=== PATIENT | male | born 1940 | race Caucasian/White ===

== ENCOUNTER 2023-12-01 18:51 | Inpatient (IN) | payer OTHER ==
[~2023-12-01] VITALS: Ht 172.7 cm; Wt 73.7 kg
[2023-12-01] MEDS ORDERED: NS 1,000 ML IV SCH (19:15)
[2023-12-01] MEDS ORDERED: HYDROmorphone 0.5 MG/0.5 ML SYRINGE IV PRN (19:15)
[2023-12-01] MEDS ORDERED: Ondansetron 4 MG/2 ML VIAL IV PRN (19:15)
--- NOTE | 2023-12-01 20:00 | NUR ---
PATIENT AND ORIENTED TO ROOM 315. PATIENT IS ALERT AND ORIENTED BUT QUITE HARD OF HEARING AND USES HEARING AIDS BILATERALLY. STATES WHEN HE IS AT REST AND NOT MOVING, HIS ABDOMINAL PAIN IS NOT PRESENT, HOWEVER WHEN HE MOVES OR BENDS FORWARD IT INCREASES SIGNIFICANTLY. AT BASELINE HE USES 5L O2 VIA NASAL CANNULA. WAS ABLE TO AMBULATE FROM WHEELCHAIR TO BED WITHOUT ASSISTANCE OR ANY ASSISTIVE DEVICES. EDUCATED DOCKET CLERK LIGHT USE AND ENSURED CALL LIGHT IS WITHIN REACH. BED IS LOCKED AND IN LOW POSITION. EDUCATED PATIENT ON NPO STATUS, TO WHICH HE EXPRESSED UNDERSTANDING. PATIENT AND HAD SEVERAL QUESTIONS TO WHEN SURGERY WOULD BE IN THE MORNING, THIS RN ADVISED THAT I WOULD CHECK WITH STITCH CLEANER AND SEE IF HE HAS BEEN PLACED ON THE SURGERY SCHEDULE YET. IS REQUESTING TO REMAIN AT BEDSIDE SHE HAS AN HOUR DRIVE BACK TO THEIR HOME AND WOULD HAVE ANOTHER HOUR DRIVE BACK TO OUR FACILITY FIRST THING IN THE MORNING, ASSOCIATE AUTOMATION ENGINEER DID APPROVE OF THIS REQUEST AND AGREES TO VISITOR POLICY.
[2023-12-01 20:01] VITALS: BP 158/79; PULSE 88; TEMP 98.3
[2023-12-01] MEDS ORDERED: PRILOSEC 20MG20 MG PO (20:08)
[2023-12-01] MEDS ORDERED: ZOCOR 40MG40 MG PO (20:09)
[2023-12-01] MEDS ORDERED: CLARITIN 1010 MG/TAB PO (20:10)
[2023-12-01] MEDS ORDERED: DULERA1 AR1 IH (20:11)
[2023-12-01] MEDS ORDERED: PRINZIDE 12.5 M1 TAB PO (20:11)
[2023-12-01] MEDS ORDERED: OPTIVE SENSITI0.4 ML OU (20:12)
[2023-12-01] MEDS ORDERED: PROAIR HFA0.09 MG/AC IH (20:12)
[2023-12-01 21:32] LABS: COLLECTION METHOD CLEAN CATCH
[2023-12-01 21:41] VITALS: BP_SYST 158
[2023-12-01 21:46] LABS: URINE APPEARANCE CLEAR (CLEAR/HAZY); URINE BLOOD NEGATIVE (NEGATIVE); URINE COLOR YELLOW (YELLOW); URINE GLUCOSE NEGATIVE (NEGATIVE); URINE KETONE NEGATIVE (NEGATIVE); URINE NITRATE NEGATIVE (NEGATIVE); URINE PROTEIN(semi-quant) 2+ (NEGATIVE)
[2023-12-01 21:54] LABS: CALCIUM 10.2 mg/dL (8.4-10.2); CREATININE, serum 1.3 mg/dL (0.72-1.25); POTASSIUM 3.3 mEq/L (3.5-4.5)
[2023-12-01] MEDS ORDERED: Mometasone/Formoterol 200/5 MCG MDI IH SCH (22:28)
[2023-12-01] MEDS ORDERED: CENTRUM SILVER1 TAB PO (22:30)
[2023-12-01] MEDS ORDERED: VITAMIN E1000 U/CAP PO (22:30)
[2023-12-01] MEDS ORDERED: Albuterol 0.083% Neb Soln 2.5 MG/3 ML UD IH PRN (22:30)
[2023-12-01] MEDS ORDERED: ASPIRIN 81M81 MG/TA2 PO (22:36)
[2023-12-01] MEDS ORDERED: *Potassium Replacement Protocol MC SCH (22:45)
[2023-12-01] MEDS ORDERED: Potassium Chloride 100 ML IV SCH (22:45)
[2023-12-01 23:29] VITALS: BP 154/92; PULSE 87; TEMP 97.3
--- NOTE | 2023-12-01 23:30 | NUR ---
PATIENT CALLED STATING HIS IV WAS BURNING. EDUCATED PATIENT THAT THIS IS A COMMON SIDE EFFECT OF HIS IV POTASSIUM. DECREASED RATE OF KCL TO 75 ML/HR AND PATIENT IS CURRENTLY TOLERATING THE FLUID MUCH BETTER.
[2023-12-02] VITALS (14 sets, daily range): BP systolic 144–164; BP diastolic 66–88; PULSE 73–98; TEMP 97.5–98.2
[2023-12-02 06:42] LABS: BASO % 0.2 % (0.0-2.0); EOS # 0.2 K/mm3 (0.0-0.7); EOS % 1.9 % (0.0-4.0); GRAN # 7.5 K/mm3 (1.4-6.5); GRAN % 81.1 % (42.2-75.2); HEMOGLOBIN 11.5 g/dl (13.5-18.0); LYMPH # 0.7 K/mm3 (1.2-3.4); LYMPH % 7.5 % (20.0-51.0); MEAN CELL VOLUME 98 fl (80.0-100.0); MEAN CORPUSCULAR HEMOGLOBIN 32 pg (27-31); MEAN CORPUSCULAR HGB CONC 33 g/dl (33.0-37.0); MEAN PLATELET VOLUME 9.9 fl (7.4-10.4); MONO # 0.8 K/mm3 (0.1-0.6); MONO % 8.3 % (1.7-9.3); PLATELET COUNT 182 K/mm3 (130-400); REDCELL DISTRIBUTION WIDTH-CV 13.2 % (11.5-14.5)
[2023-12-02 06:46] LABS: HEMATOCRIT 35.4 % (42.0-52.0)
[2023-12-02] MEDS ORDERED: Formoterol Neb Soln 20 MCG/2 ML UD IH SCH (07:00)
[2023-12-02] MEDS ORDERED: Budesonide Neb Susp 0.5 MG/2 ML AMP IH SCH (07:00)
[2023-12-02 07:14] LABS: ALBUMIN 2.5 g/dL (3.4-4.8); BILIRUBIN,TOTAL 1.3 mg/dL (0.2-1.2); CALCIUM 10.1 mg/dL (8.4-10.2); CREATININE, serum 1.16 mg/dL (0.72-1.25); TOTAL PROTEIN 5.9 g/dl (6.2-8.1)
[2023-12-02] MEDS ORDERED: Loratadine 10 MG TAB PO SCH (09:00)
[2023-12-02] MEDS ORDERED: HYDROCHLOROTHIAZIDE 12.5 MG PO SCH (09:00)
[2023-12-02] MEDS ORDERED: Carboxymethylcellulose PF Ophth 0.4 ML DROPPERETTE OP SCH (09:00)
[2023-12-02] MEDS ORDERED: OPTIVE EYE OP SCH (09:00)
[2023-12-02] MEDS ORDERED: Pantoprazole 40 MG in NS 10 ML IV SCH (09:00)
[2023-12-02] MEDS ORDERED: LISINOPRIL 10 MG PO SCH (09:00)
[2023-12-02] MEDS ORDERED: Dextrose 50% Water 25 GM/50 ML SYRINGE IV ONE ×2 (09:15→13:45)
--- NOTE | 2023-12-02 09:34 | NUR ---
Patient resting in bed, alert and oriented x 4, some hypertension. BG low, reported to Dr. Walden. 12.5 g IV dextrose provided. Pt denies any pain at this time. NPO from midnight. Aware of ERCP procedure. Consent signed. Getting IV fluids. Assessment completed, meds given. No further needs at this time. Call light within reach.
[2023-12-02] MEDS ORDERED: LR 1,000 ML IV SCH (13:00)
--- NOTE | 2023-12-02 13:55 | NUR ---
Call placed to Dr. Walden to report patient's BG is 75. Since NPO for intervention, ordered placed for 25g DEXTROSE, given. Pt to be taken for procedure. LR started.
[2023-12-02] MEDS ORDERED: Iohexol 350 - 100 ML VIAL BILE DUCT ONE (15:03)
[2023-12-02] MEDS ORDERED: Lidocaine PF 2% (20 MG/ML) 5 ML VIAL ONE (15:09)
--- NOTE | 2023-12-02 15:34 | NUR ---
Patient is back to his room, alert and oriented x 4, 2L O2 SAT 97%. 143/79. Post op started.
--- NOTE | 2023-12-02 16:12 | NUR ---
Counselor Dormitory entered patient's room to complete initial intake and patient was asleep. SW spoke with patient's , Aranza (ph#[phone]) about discharge planning. Patient lives in [place] with Aranza and sees Coco Mahan APRN for primary care. Patient gets medications from [facility] and does not use any assistive devices for walking. Patient is on oxygen at baseline and Aranza believes it's supplied through the [facility]. SW asked about DPOA-HC and Aranza is unsure if patient has one completed. Discharge Plan; Home
--- NOTE | 2023-12-02 17:56 | NUR ---
Patient tolerating clear liquid diet. He does not want to try something else now. Aware of being NPO after midnight.
--- NOTE | 2023-12-02 21:39 | NUR ---
UPON ENTERING ROOM, PATIENT IS RESTING IN BED WITH EYES CLOSED BUT IS EASILY ROUSED. DENIES ANY ABDOMINAL PAIN AT THIS TIME, STATES TOLERATED HIS CLEAR LIQUID DINNER TRAY. ALERT AND ORIENTED X4. CALL LIGHT WITHIN REACH. EXPRESSES UNDERSTANDING OF POSSIBLE CHOLECYSTECTOMY TOMORROW AND NEED TO RETURN TO NPO STATUS AFTER MIDNIGHT. BED IS LOCKED AND IN LOW POSITION. REMAINS ON 5L O2 VIA NASAL CANNULA WHICH IS HIS BASELINE.
[2023-12-03] VITALS (13 sets, daily range): BP systolic 138–177; BP diastolic 67–91; PULSE 70–99; TEMP 97.5–98.1
[2023-12-03 07:47] LABS: BASO % 0.2 % (0.0-2.0); EOS # 0.2 K/mm3 (0.0-0.7); EOS % 2.9 % (0.0-4.0); GRAN # 6.4 K/mm3 (1.4-6.5); GRAN % 79.3 % (42.2-75.2); LYMPH # 0.6 K/mm3 (1.2-3.4); LYMPH % 7.7 % (20.0-51.0); MEAN CELL VOLUME 95 fl (80.0-100.0); MEAN CORPUSCULAR HEMOGLOBIN 32 pg (27-31); MEAN CORPUSCULAR HGB CONC 34 g/dl (33.0-37.0); MEAN PLATELET VOLUME 9.7 fl (7.4-10.4); MONO # 0.7 K/mm3 (0.1-0.6); PLATELET COUNT 180 K/mm3 (130-400); RED BLOOD COUNT 3.47 M/mm3 (4.20-5.60); REDCELL DISTRIBUTION WIDTH-CV 12.7 % (11.5-14.5)
[2023-12-03 07:48] LABS: HEMATOCRIT 32.8 % (42.0-52.0)
[2023-12-03 07:58] LABS: ALBUMIN 2.3 g/dL (3.4-4.8); BILIRUBIN,TOTAL 0.9 mg/dL (0.2-1.2); CALCIUM 9.2 mg/dL (8.4-10.2); CREATININE, serum 0.89 mg/dL (0.72-1.25); POTASSIUM 3.7 mEq/L (3.5-4.5); TOTAL PROTEIN 5.8 g/dl (6.2-8.1)
--- NOTE | 2023-12-03 09:26 | NUR ---
SHIFT ASSESSMENT COMPLETED AT THIS TIME. PT A&OX4. PT DENIES PAIN, NAUSEA, AND SOB. PT RESTING IN BED UPON ENTRANCE. PT ON 1L O2 PER NC. SCHEDULED MORNING MEDICATIONS ADMINSITERED WITHOUT COMPLICATIONS. CALL LIGHT WITHIN REACH, NO FURTHER NEEDS AT THIS TIME.
[2023-12-03] MEDS ORDERED: Potassium Bicarbonate/Citrate 20 MEQ Effervescent TAB PO SCH (09:45)
--- NOTE | 2023-12-03 10:14 | NUR ---
Reviewed documentation of BRAVO Miranda.
--- NOTE | 2023-12-03 16:04 | NUR ---
CARDIOLOGY NOTIFIED OF ELEVATED BLOOD PRESURES. NO NEW ORDERS AT THIS TIME.
--- NOTE | 2023-12-03 17:16 | NUR ---
NOTFIED BY CARDIOLOGY THAT PT WAS CLEARED FOR SURGERY. DR BORJAS NOTIFIED. NO NEW ORDERS RECIEVED.
--- NOTE | 2023-12-03 17:42 | NUR ---
DR BORJAS NOTFIED THIS NURSE THAT PT CAN HAVE A REGULAR DIET THEY WILL NOT BE [facility] SURGERY TODAY.
[2023-12-03] MEDS ORDERED: NS 1,000 ML IV SCH (23:15)
[2023-12-04] VITALS (15 sets, daily range): BP systolic 153–197; BP diastolic 61–97; PULSE 77–89; TEMP 97.7–98.4
[2023-12-04 06:19] LABS: BASO % 0.5 % (0.0-2.0); EOS # 0.3 K/mm3 (0.0-0.7); EOS % 3.8 % (0.0-4.0); GRAN # 5.4 K/mm3 (1.4-6.5); GRAN % 73.6 % (42.2-75.2); HEMOGLOBIN 11.2 g/dl (13.5-18.0); LYMPH # 0.8 K/mm3 (1.2-3.4); LYMPH % 10.9 % (20.0-51.0); MEAN CELL VOLUME 96 fl (80.0-100.0); MEAN CORPUSCULAR HEMOGLOBIN 32 pg (27-31); MEAN CORPUSCULAR HGB CONC 33 g/dl (33.0-37.0); MEAN PLATELET VOLUME 9.2 fl (7.4-10.4); MONO # 0.8 K/mm3 (0.1-0.6); MONO % 10.4 % (1.7-9.3); PLATELET COUNT 177 K/mm3 (130-400); RED BLOOD COUNT 3.52 M/mm3 (4.20-5.60); REDCELL DISTRIBUTION WIDTH-CV 12.5 % (11.5-14.5)
[2023-12-04 06:20] LABS: HEMATOCRIT 33.7 % (42.0-52.0)
[2023-12-04 06:37] LABS: ALBUMIN 2.1 g/dL (3.4-4.8); BILIRUBIN,TOTAL 0.6 mg/dL (0.2-1.2); CREATININE, serum 0.84 mg/dL (0.72-1.25); POTASSIUM 3.9 mEq/L (3.5-4.5); TOTAL PROTEIN 5.4 g/dl (6.2-8.1)
[2023-12-04] MEDS ORDERED: *Potassium Replacement Protocol MC SCH (07:45)
[2023-12-04] MEDS ORDERED: Potassium Bicarbonate/Citrate 20 MEQ Effervescent TAB PO ONE (07:45)
--- NOTE | 2023-12-04 08:00 | NUR ---
PT AWAKE AND RESTING IN BED. SCHEDULED MEDS GIVEN PER eMAR. GLASSES IN PLACE. PT DENIES PAIN AND SOA. C/O SOME DISCOMFORT IN ABDOMEN THAT HAS IMPROVED FROM YESTERDAY. ALL NEEDS MET AT THIS TIME. CALL LIGHT WITHIN REACH. BED ALARM ON.
[2023-12-04] MEDS ORDERED: LR 1,000 ML IV SCH (10:15)
--- NOTE | 2023-12-04 14:11 | NUR ---
Data: Patient declined spiritual care visit offered during Research/Program Director rounds. Assessment: None. Patient declined. Plan of Care: Chaplains will remain available as requested while Patient is admitted to this hospital.
[2023-12-04] MEDS ORDERED: amLODIPine 10 MG TAB PO ONE (17:00)
[2023-12-04] MEDS ORDERED: hydrALAZINE 25 MG TAB PO PRN (17:00)
[2023-12-04] MEDS ORDERED: Atorvastatin 20 MG TAB PO SCH (21:00)
[2023-12-04] MEDS ORDERED: Acetaminophen 325 MG TAB PO PRN (22:00)
[2023-12-05] VITALS (19 sets, daily range): BP systolic 134–164; BP diastolic 49–97; PULSE 64–92; TEMP 97.5–98.2
[2023-12-05] MEDS ORDERED: Indocyanine Green 6.25 MG in Water For Injection,Sterile 1.25 ML IV SCH (07:00)
--- NOTE | 2023-12-05 08:00 | NUR ---
PT AWAKE AND RESTING IN CHAIR. GLASSES IN PLACE. SCHEDULED MEDS GIVEN PER eMAR. CONSENT FORMS SIGNED. IV SITE IN R FOREARM PATENT, DRESSING CDI. NS AT 100ML/HR. PT DENIES PAIN. REFUSES SOCK FOR LEFT FOOT. ALL NEEDS MET AT THIS TIME. CALL LIGHT WITHIN REACH.
--- NOTE | 2023-12-05 09:10 | NUR ---
PT OFF OF UNIT AT THIS TIME TO PROCEDURE VIA WHEELCHAIR.
[2023-12-05] MEDS ORDERED: fentaNYL 50 MCG/ML 2 ML VIAL ONE (09:50)
[2023-12-05] MEDS ORDERED: dexAMETHasone 10 MG/ML VIAL ONE (09:50)
[2023-12-05] MEDS ORDERED: Rocuronium 50 MG/5 ML Multi-Dose VIAL ONE (09:50)
[2023-12-05] MEDS ORDERED: Ondansetron 4 MG/2 ML VIAL ONE (09:50)
[2023-12-05] MEDS ORDERED: Lidocaine PF 2% (20 MG/ML) 5 ML VIAL ONE ×2 (09:50→09:55)
[2023-12-05] MEDS ORDERED: Glycopyrrolate 0.2 MG/ML 1 ML VIAL ONE (09:50)
[2023-12-05] MEDS ORDERED: ePHEDrine 50 MG/ML VIAL ONE (10:31)
--- NOTE | 2023-12-05 12:00 | NUR ---
PT BACK TO FLOOR AT THIS TIME VIA STRETCHER. RATES PAIN 4/10. 2L O2 VIA NC. TELEMETRY IN PLACE. 4 LAP SITES ON ABDOMEN. CALL LIGHT WITHIN REACH, BED ALARM ON.
[2023-12-05] MEDS ORDERED: Potassium Bicarbonate/Citrate 20 MEQ Effervescent TAB PO ONE (17:15)
[2023-12-05] MEDS ORDERED: *Potassium Replacement Protocol MC SCH (17:15)
[2023-12-06] VITALS: BP_SYST 143
[2023-12-06 03:54] VITALS: BP 154/80; PULSE 65; TEMP 97.5
[2023-12-06 04:05] VITALS: BP_SYST 154
[2023-12-06 08:41] VITALS: BP 160/68; PULSE 94; TEMP 98.2
[2023-12-06 09:00] VITALS: BP_SYST 160
[2023-12-06] MEDS ORDERED: PRINZIDE 12.5 M1 TA1 PO (10:10)
--- NOTE | 2023-12-06 13:10 | NUR ---
Patient discharged to home, educated on new medications and discharge instructions, pt and verbalized understanding. IV and telemetry removed prior to discharge, catheter tip intact. Assisted out to car by nursing staff, all belongings sent with patient and .
== END 2023-12-06 13:14 | disposition home or self-care (01) | DRG 853 ==
LOC: MEDICAL 18:51
PROVIDERS: Nurse Practitioner Family; Surgery; ADMIT Internal Medicine
PROC: 0FC98ZZ Extirpation of Matter from Common Bile Duct, Via Natural or Artificial Opening Endoscopic (ICD-10-PCS; 2023-12-02)
PROC: 8E0W4CZ Robotic Assisted Procedure of Trunk Region, Percutaneous Endoscopic Approach (ICD-10-PCS; 2023-12-05)
PROC: 0FT44ZZ Resection of Gallbladder, Percutaneous Endoscopic Approach (ICD-10-PCS; principal; 2023-12-05 10:00)
DX: A41.9 Sepsis, unspecified organism (principal); K85.10 Biliary acute pancreatitis without necrosis or infection; K80.62 Calculus of gallbladder and bile duct with acute cholecystitis without obstruction; J96.11 Chronic respiratory failure with hypoxia; N17.9 Acute kidney failure, unspecified; D64.9 Anemia, unspecified; E87.6 Hypokalemia; E78.5 Hyperlipidemia, unspecified; I12.9 Hypertensive chronic kidney disease with stage 1 through stage 4 chronic kidney disease, or unspecified chronic kidney disease; N18.9 Chronic kidney disease, unspecified; H91.90 Unspecified hearing loss, unspecified ear; J44.9 Chronic obstructive pulmonary disease, unspecified; Z99.81 Dependence on supplemental oxygen; Z87.891 Personal history of nicotine dependence; Z79.82 Long term (current) use of aspirin; Z79.899 Other long term (current) drug therapy; Z88.2 Allergy status to sulfonamides
CPT/HCPCS: C1769; J1100; J2405; J2470; J2704; J3010; J3480; J7030; J7120; Q9967